=== PATIENT | male | born 1970 | race Two or more races ===

== ENCOUNTER 2016-09-13 14:08 | Emergency (ER) | payer MEDICAID ==
[2016-09-13 15:00] VITALS: BP 134/61
== END 2016-09-13 15:00 | disposition home or self-care (01) ==
LOC: ED 14:08
DX: Z03.89 Encounter for observation for other suspected diseases and conditions ruled out (principal); R03.0 Elevated blood-pressure reading, without diagnosis of hypertension

== ENCOUNTER 2016-12-03 17:45 | Emergency (ER) | payer MEDICAID ==
[~2016-12-03] VITALS: Ht 170.2 cm; Wt 81.2 kg
[2016-12-03 18:17] VITALS: BP 149/93
== END 2016-12-03 19:17 | disposition home or self-care (01) ==
LOC: ED 17:45
DX: L50.9 Urticaria, unspecified (principal); L25.9 Unspecified contact dermatitis, unspecified cause; B86 Scabies; Z88.8 Allergy status to other drugs, medicaments and biological substances